=== PATIENT | male | born 1935 | race Caucasian/White ===

== ENCOUNTER 2018-10-24 09:37 | Observation (INO) | payer MEDICARE ==
[~2018-10-24] VITALS: Ht 180.3 cm; Wt 69.2 kg
[~2018-10-24 09:37] MED LIST: AMLO10TA8 PO; HYDR-3240 PO; LISI5TAB7 PO; OPIU1SUP2 PR; TAMS-11 PO; TIMO5DRO5 EACHEYE
[2018-10-24] MEDS ORDERED: SODIUM CHLORIDE 0.9% 1,000 ML IV SCH (11:06)
[2018-10-24 11:08] VITALS: BP 151/84
[2018-10-24] MEDS ORDERED: CEFAZOLIN PMX 1GM/50ML 50 ML IVPB ONE (11:30)
[2018-10-24] MEDS ORDERED: ACETAMINOPHEN 325 MG TABLET PO PRN (15:00)
[2018-10-24] MEDS ORDERED: HOLD MEDICATION MC PRN (15:00)
[2018-10-24 20:25] VITALS: BP 113/70
[2018-10-24] MEDS ORDERED: ZOLPIDEM 5MG TABLET PO PRN (21:30)
[2018-10-24] MEDS: SODIUM CHLORIDE FLUSH 10ML SYR IVF SCH (22:02)
[2018-10-24] MEDS: CEFAZOLIN PMX 1GM/50ML 50 ML IVPB SCH (22:02)
[2018-10-25 01:58] VITALS: BP 125/78
[2018-10-25] MEDS: CEFAZOLIN PMX 1GM/50ML 50 ML IVPB SCH (06:12)
[2018-10-25 07:10] VITALS: BP 137/76
[2018-10-25] MEDS: SODIUM CHLORIDE FLUSH 10ML SYR IVF SCH (08:15)
[2018-10-25] MEDS ORDERED: AMLODIPINE 10 MG TAB PO SCH (09:00)
[2018-10-25] MEDS ORDERED: LISINOPRIL 5 MG TABLET PO SCH (09:00)
== END 2018-10-25 12:40 | disposition home or self-care (01) ==
LOC: CACL 09:37 → EDSTATUS 10:00 → ORIP 14:49 → CACL 14:49 → 5SO 15:01 → EDSTATUS 11-24 10:00
PROVIDERS: ADMIT Internal Medicine Cardiovascular Disease; ATTEND Internal Medicine Cardiovascular Disease
DX: I49.5 Sick sinus syndrome (principal); I48.91 Unspecified atrial fibrillation; I10 Essential (primary) hypertension
CPT/HCPCS: 33208; 71045; 93306; 96365; 96366; 99156; 99157; C1779; C1785; C1892; G0378; J0690

== ENCOUNTER 2019-09-10 14:33 | Outpatient (CLI) | payer MEDICARE | END 2019-09-10 23:59 | disposition home or self-care (01) | LOC: RAD 14:33 | PROVIDERS: ATTEND Nurse Practitioner Acute Care | DX: K86.2 Cyst of pancreas (principal); I51.7 Cardiomegaly | CPT/HCPCS: 74181 ==

== ENCOUNTER 2020-10-06 14:11 | Outpatient (CLI) | payer MEDICARE ==
[~2020-10-06 14:11] MED LIST changes: +AMLO-211 PO; -AMLO10TA8 PO; +HYDR-1067 PO; -HYDR-3240 PO
== END 2020-10-06 23:59 | disposition home or self-care (01) ==
LOC: RAD 14:11
PROVIDERS: ATTEND Nurse Practitioner Acute Care
DX: K86.2 Cyst of pancreas (principal); N28.1 Cyst of kidney, acquired
CPT/HCPCS: 74181